=== PATIENT | female | born 1960 | race Caucasian/White ===

== ENCOUNTER 2016-12-21 08:05 | Day surgery (SDC) | payer OTHER ==
[2016-12-16 10:17] LABS: HEMATOCRIT 42.2 % (36.0-48.0)
--- NOTE | ~2016-12-21 | OP ---
Record Of Operation [facility] [address] [place]. [address] NAME: DENIA VALDEZ : 62 STATUS : REG [facility]#: [id number] AGE: 56 ADM/REG DATE : 12/21/16 MR#: [id number] REPORT SERV DATE: 12/21/16 DICTATED BY: ALEX RUBIO DATE: 12/21/16 REPORT STATUS : Draft TRANSCRIBED BY: AMBER DATE: 12/21/16 DATE OF PROCEDURE: 12/21/2016 PREOPERATIVE DIAGNOSES: Cervical disk disease with herniation and stenosis, cervical radiculopathy at C5-C6. POSTOPERATIVE DIAGNOSES: Cervical disk disease with herniation and stenosis, cervical radiculopathy at C5-C6. PROCEDURES: Anterior cervical diskectomy and fusion, C5-6; placement of Medtronic PEEK interbody spacer, C5-C6; anterior cervical plate, C5-6; allograft bone matrix; neuromonitoring; and operative microscope. ANESTHESIA: General. ESTIMATED BLOOD LOSS: 5 mL. COMPLICATIONS: None. INDICATIONS: The patient is a pleasant 56-year-old with intractable neck and left arm pain, paresthesias, and weakness. After discussion of the risks and benefits and informed consent, she elected to proceed with surgical intervention. DESCRIPTION OF PROCEDURE: I identified the patient in the holding area. Consent was obtained. Went to the operating room. Underwent general anesthesia with endotracheal intubation. Prepped and draped in the usual sterile fashion. Operative safety pause was performed, then we proceeded with the surgery. A transverse incision was made over the left C5-C6 level taken down through the platysma. Dissection carried out down to the anterior aspect of the spine. Longus colli elevated. Wesson pin was placed at C5, and lateral fluoroscopic image was used to verify operative level. Pins were placed at C5 and C6. Distraction applied. Operative microscope was brought in. A knife was used to perform an annulotomy. Free disk material was removed with pituitary. Anterior osteophytes were removed with Kerrison, posterior osteophytes and uncinate processes taken down with a narayan duncan. Foraminotomies performed with a Kerrison. Endplates were prepared with curettes, rasp, and cutting duncan. Trial spacers were implanted and then a Medtronic PEEK interbody spacer with allograft bone matrix was placed at C5-C6. Wesson pins were removed. Anterior cervical plate from Medtronic was placed at C5-C6. Screws were placed, final tightened. Locking mechanisms were engaged. Final AP and lateral fluoroscopic images were obtained. Irrigation was performed. Hemostasis was achieved. Layered closure was performed. Sterile dressings were applied. The patient was awoken and extubated, and taken to the recovery room in stable condition. OPERATIVE FINDINGS: C5-6 disk herniation. No sustained neuromonitoring alerts. Record Of Operation [address] [address] NAME: DENIA VALDEZ : 62 STATUS : REG [facility] [place] PAT#: [id number] AGE: 56 ADM/REG DATE : 12/21/16 MR#: [id number] REPORT SERV DATE: 12/21/16 DICTATED BY: ALEX RUBIO DATE: 12/21/16 REPORT STATUS : Draft TRANSCRIBED BY: MODAlissa DATE: 12/21/16 NEETA/AMBER Alex Rubio DO / [id number] CC: DO Phil Nuñez M.D.
--- NOTE | ~2016-12-21 | PREOPHP ---
PreOp History and Physical [place] [id number] [facility] [place]. [address] NAME: DENIA VALDEZ : 62 STATUS : REG [facility]#: [id number] AGE: 56 ADM/REG DATE : 12/21/16 MR#: [id number] REPORT SERV DATE: 12/21/16 DICTATED BY: ALEX RUBIO DATE: 12/21/16 REPORT STATUS : Draft TRANSCRIBED BY: AMBER DATE: 12/21/16 CHIEF COMPLAINT: Neck pain. HISTORY OF PRESENT ILLNESS: The patient is a pleasant 56-year-old female with intractable neck pain and left upper extremity pain with paresthesias, weakness, and headaches. She has failed multiple attempts at conservative treatment, and after discussion of the risks and benefits, elected to proceed with surgical intervention. She also complains of some progressive problems with balance and dropping objects consistent with early signs of cervical myelopathy. REVIEW OF SYSTEMS: She denies chest pain, shortness of breath, bowel or bladder changes. PHYSICAL EXAMINATION: VITAL SIGNS: Height 5 feet 4 inches, weight 163. BMI of 28. GENERAL: The patient is healthy appearing, in no acute distress. PSYCH: Alert and oriented x3. Normal mood and affect. Gait is somewhat unsteady. VASCULAR: No extremity swelling. SPINE: Decreased cervical motion. HEART: Regular rate and rhythm. LUNGS: Clear to auscultation. ABDOMEN: Soft, nontender, and nondistended. Good bowel sounds. BREASTS AND RECTAL: Both deferred. MUSCULOSKELETAL: Spurling's is positive on the left. Lhermitte's is positive. PAST MEDICAL HISTORY: Includes migraines and COPD. FAMILY HISTORY: Noncontributory. ALLERGIES: DENIED. HOME MEDICATIONS: Estradiol, ProAir, Robaxin, and tramadol. IMAGING: I have reviewed the imaging studies. She does have C5-C6 disk disease and stenosis with nerve root and spinal cord compression. ASSESSMENT: C5-6 disk disease and stenosis with nerve root and spinal cord compression, early signs of cervical myelopathy, cervical radiculopathy, failed physical therapy, medications, and had progressive neurologic decline. After discussion of the risks and benefits, the patient elected to proceed with surgical intervention. NEETA/AMBER Alex Rubio DO PreOp History and Physical [address] [place]. [address] NAME: DENIA VALDEZ : 62 STATUS : REG [facility] PAT#: [id number] AGE: 56 ADM/REG DATE : 12/21/16 MR#: [id number] REPORT SERV DATE: 12/21/16 DICTATED BY: ALEX RUBIO DATE: 12/21/16 REPORT STATUS : Draft TRANSCRIBED BY: AMBER DATE: 12/21/16 / [id number] CC: DO Phil Nuñez M.D.
[~2016-12-21 08:05] MED LIST: ESTRACE0.5 MG PO; METHOC750B PO; ULTRAM50 PO; VENTOLIN HFA INH
== END 2016-12-21 16:58 | disposition home or self-care (01) ==
LOC: SDC 08:05
PROVIDERS: Orthopaedic Surgery
PROC: 0RG10A0 Fusion of Cervical Vertebral Joint with Interbody Fusion Device, Anterior Approach, Anterior Column, Open Approach (ICD-10-PCS; principal; 2016-12-21 10:15)
PROC: 0RG Upper Joints, Fusion (ICD-10-PCS; 2016-12-21 10:15)
DX: M50.122 Cervical disc disorder at C5-C6 level with radiculopathy (principal); J44.9 Chronic obstructive pulmonary disease, unspecified; G43.909 Migraine, unspecified, not intractable, without status migrainosus; F17.200 Nicotine dependence, unspecified, uncomplicated
CPT/HCPCS: 82962; 85014; 85018; 87641; 88304; 88311; 93005; A9270-GY; C1713; J0690; J1030; J2250; J2405; J2710; J3010